=== PATIENT | female | born 1965 | race Caucasian/White ===

== ENCOUNTER 2018-10-13 17:20 | Emergency (ER) | payer MEDICARE, OTHER ==
[~2018-10-13] VITALS: Ht 170.2 cm; Wt 80.0 kg
[2018-10-13 17:31] VITALS: BP 144/92
[2018-10-13 17:48] LABS: BASOPHILS # (AUTO) 0.03 x10^3/uL (0-0.1); BASOPHILS % (AUTO) 0 % (0-1); EOSINOPHILS # (AUTO) 0.31 x10^3/uL (0-0.4); EOSINOPHILS % (AUTO) 5 % (1-7); LYMPHOCYTES % (AUTO) 32 % (22-44); MD NO; MEAN CORPUSCULAR HEMOGLOBIN 31.4 pg (27.0-34.8); MEAN CORPUSCULAR HGB CONC 33.9 g/dL (32.4-35.8); MEAN CORPUSCULAR VOLUME 92.4 fL (80-100); MEAN PLATELET VOLUME 9.5 fL (7.4-10.4); MONOCYTES # (AUTO) 0.37 x10^3/uL (0.2-0.8); MONOCYTES % (AUTO) 5 % (2-9); NEUTROPHILS # (AUTO) 4.03 x10^3/uL (1.8-6.8); NEUTROPHILS % (AUTO) 58 % (42-75); PLATELET COUNT 204 x10^3/uL (130-400); RED BLOOD COUNT 4.89 x10^6/uL (3.82-5.3); RED CELL DISTRIBUTION WIDTH 12.3 % (9.6-15.2)
[2018-10-13 17:58] LABS: ALBUMIN 3.4 g/dL (3.4-5.0); ANION GAP 8 mmol/L (5-15); CALCIUM 8.4 mg/dL (8.5-10.1); CHLORIDE 113 mmol/L (98-107)
[2018-10-13] MEDS ORDERED: SERT100T5 PO (18:03)
[2018-10-13] MEDS ORDERED: ERGO500017 PO (18:03)
[2018-10-13] MEDS ORDERED: METO25TA91 PO (18:09)
[2018-10-13] MEDS ORDERED: METH5TAB6 PO (18:09)
[2018-10-13] MEDS ORDERED: ZOLP10TA5 PO (18:09)
[2018-10-13] MEDS ORDERED: CLON1TAB11 PO (18:09)
[2018-10-13] MEDS ORDERED: LEVO50TA5 PO (18:09)
[2018-10-13 18:10] LABS: ALANINE AMINOTRANSFERASE 25 U/L (12-78); ALKALINE PHOSPHATASE 122 U/L (45-117); BILIRUBIN,TOTAL 0.3 mg/dL (0.2-1.0); CREATININE 1.47 mg/dL (0.55-1.02); SALICYLATE LEVEL 1.7 mg/dL (2.8-20.0); TOTAL PROTEIN 6.6 g/dL (6.4-8.2)
[2018-10-13] MEDS ORDERED: BACITRACIN ZINC OINT 500U/GM, 0.9 GM ONE (18:14)
[2018-10-13] MEDS ORDERED: LORazepam 0.5MG TABLET ONE (18:14)
[2018-10-13 18:18] LABS: ACETAMINOPHEN < 2 mcg/mL (10-30); THYROID STIMULATING HORMONE < 0.005 mIU/L (0.358-3.740)
[2018-10-13 18:28] LABS: MICROSCOPIC NOT IND
[2018-10-13] MEDS ORDERED: PLEASE ENTER ALLERGIES MC SCH (18:30)
[2018-10-13] MEDS ORDERED: LORazepam 0.5MG TABLET PO ONE (18:30)
[2018-10-13 18:32] LABS: CULTURE INDICATED? NO
[2018-10-13 18:39] LABS: AMPHETAMINE SCREEN, URINE Negative (Negative); BARBITURATE SCREEN, URINE Negative (Negative); BENZODIAZEPINE SCREEN, URINE Negative (Negative); CANNABINOID SCREEN, URINE Negative (Negative); COCAINE SCREEN, URINE Negative (Negative); METHADONE SCREEN, URINE Negative (Negative); OPIATE SCREEN, URINE Negative (Negative)
== END 2018-10-13 21:02 | disposition home or self-care (01) ==
LOC: ED 17:48
DX: F60.9 Personality disorder, unspecified (principal); Z76.5 Malingerer [conscious simulation]; I10 Essential (primary) hypertension; E05.90 Thyrotoxicosis, unspecified without thyrotoxic crisis or storm
CPT/HCPCS: 36415; 80053; 80307; 80329; 81003; 84443; 85025; 93005; 99284; G0480